=== PATIENT | female | born 1995 | race Caucasian/White ===

== ENCOUNTER 2018-08-09 16:42 | Emergency (ER) | payer MEDICAID ==
[2018-08-09 16:57] VITALS: BP 131/72
[2018-08-09] MEDS ORDERED: LIDOCAINE 2% VISCOUS SOLN 20 ML UDCUP PO ONE (17:14)
--- NOTE | 2018-08-09 17:19 | ER Document Report ---
HPI - HPI Time Seen by Provider: 08/09/18 17:10 Pain Level: 1 Notes: Patient is a 23-year-old male who presents to the ED complaining of Rt upper gum/dental pain #4 x3-4 days, with swelling that started x1-2 day. She has not noticed any obvious abscess or purulent discharge. Patient states that she is still able to eat and drink, but does have a decreased p.o. intake due to the pain. She has tried some [id number] meds with minimal relief. No other concerns or complaints. Denies any headache, fever, head injury, neck pain, hoarseness, drooling, URI, sore throat, chest pain, palpitations, syncope, cough, shortness of breath, wheeze, dyspnea, abdominal pain, nausea/vomiting/diarrhea, urinary retention, dysuria, hematuria, or rash. - ROS Systems Reviewed and Negative: Yes All other systems reviewed and negative - CONSTITUTIONAL Constitutional: DENIES: Fever, Chills - REPRODUCTIVE Reproductive: DENIES: : Past Medical History - Social History Smoking Status: Former Smoker Frequency of alcohol use: None Drug Abuse: None Family History: Reviewed & Not Pertinent Patient has suicidal ideation: No Patient has homicidal ideation: No Renal/ Medical History: Denies: Hx Peritoneal Dialysis Vertical Provider Document - CONSTITUTIONAL Agree With Documented VS: Yes Notes: PHYSICAL EXAMINATION: GENERAL: Well-appearing, well-nourished and in no acute distress. HEAD: Atraumatic, normocephalic. EYES: Pupils equal round and reactive to light, extraocular movements intact, sclera anicteric, conjunctiva are normal. ENT: EAC clear b/l. TM's intact b/l without erythema, fluid, or perforation. Nares patent and without discharge. oropharynx clear without exudates. No tonsilar hypertrophy or erythema. Moist mucous membranes. No sinus tenderness. Uvula midline. No palatine shift. No tongue protrusion. No respiratory compromise. Mouth: Poor dentition. + mild decay and mild gingivitis. + small gum abscess on the outside of #4-5 with + tenderness. No facial swelling. + tenderness to tooth #4. NECK: Normal range of motion, supple without lymphadenopathy. No rigidity/meningismus. LUNGS: Breath sounds clear to auscultation bilaterally and equal. No wheezes rales or rhonchi. HEART: Regular rate and rhythm without murmurs, rubs, gallops. NEUROLOGICAL: Cranial nerves grossly intact. Normal speech, normal gait. PSYCH: Normal mood, normal affect. SKIN: Warm, Dry, normal turgor, no rashes or lesions noted. Course - Re-evaluation Re-evalutation: 08/09/18 Patient is an afebrile, well-hydrated, 23-year-old female who presents to the ED with dental pain and gum abscess (small). Vitals are acceptable. PE is otherwise unremarkable. Basic I&D performed successfully w/o any complications. Pt tolerated proc well. No labs or imaging warranted at this time based on H&P. Viscous lidocaine dispensed today. I will send her home with a prescription for cleocin. Low suspicion for any meningitis, sepsis, peritonsillar/pharyngeal abscess, respiratory compromise, Omari's, temporal arteritis, or other emergent systemic condition at this time. Patient is aware this condition can change from initial presentation and she needs to monitor symptoms closely. Conservative measures otherwise for symptoms. Call to schedule an appointment with a dentist for further evaluation and management. Recheck with your PCM this week as well. Return to the ED with any worsening/concerning symptoms otherwise as reviewed in discharge. Patient is in agreement. - Vital Signs Vital signs: Temp Pulse Resp BP Pulse Ox 99.5 F 78 16 131/72 H 98 08/09/18 16:56 08/09/18 16:56 08/09/18 16:56 08/09/18 16:56 08/09/18 16:56 Procedures - Incision and Drainage Right mouth Time completed: 17:20 Type: Simple Anesthetic type: Other - topical lidocaine Blade size: 11 Incision Method: Incision made by scalpel Amount/type of drainage: moderate purulent Discharge - Discharge Clinical Impression: Gum abscess Condition: Stable Disposition: HOME, SELF-CARE Instructions: Clindamycin ([facility]) Additional Instructions: [place] and floss twice daily Maintain fluid intake Take antibiotics as directed Mouthwash, salt water gargles, peroxide rinse as needed Tylenol/ibuprofen as needed Recheck with PCM in 3-5 days Call and schedule an appointment with your dentist for further evaluation Return to the ED with any worsening symptoms and/or development of fever, headache, facial swelling, swelling of lips/tongue/throat, trouble swallowing, drooling, hoarseness, neck pain/stiffness, chest pain, palpitations, syncope, shortness of breath, trouble breathing, abdominal pain, n/v/d, numbness/tingling, or other worsening symptoms that are concerning to you. Prescriptions: Clindamycin HCl [Cleocin 300 mg Capsule] 300 mg PO TID #30 capsule Forms: Elevated Blood Pressure Referrals: [facility] [Provider Group] - Follow up in 1 week
== END 2018-08-09 17:47 | disposition home or self-care (01) ==
LOC: ER 16:42
DX: K05.219 Aggressive periodontitis, localized, unspecified severity (principal); K08.9 Disorder of teeth and supporting structures, unspecified
CPT/HCPCS: 99282; 87070; 87205; 87075; 87077; 41800; J3490